=== PATIENT | female | born 2000 | race Caucasian/White ===

== ENCOUNTER 2019-04-01 10:31 | Day surgery (SDC) | payer BC ==
[~2019-04-01 10:31] MED LIST: Acetaminophen TAB* 325 MG PO ONE; Buffered Lidocaine 1% SYRIN* 1 ML/SYRINGE INTRADERM ONE; Lactated Ringers 1000 ML Bag* 1,000 ML IV SCH
[2019-04-01] MEDS ORDERED: Acetaminophen TAB* 325 MG ONE (12:25)
[2019-04-01] MEDS ORDERED: Propofol* 10 MG/ML 20 ML BTL ONE (13:37)
[2019-04-01] MEDS ORDERED: Lidocaine 2% PF * 5 ML VIAL ONE (13:37)
[2019-04-01] MEDS ORDERED: Rocuronium* 10 MG/ML VIAL ONE (13:38)
[2019-04-01] MEDS ORDERED: fentaNYL* 50 MCG/ML 2 ML VIAL (100 MCG VIAL) ONE (13:39)
[2019-04-01] MEDS ORDERED: Midazolam* 1 MG/ML 2 ML VIAL (2 MG) ONE (13:40)
[2019-04-01] MEDS ORDERED: Ondansetron INJ* 2 MG/ML VIAL ONE (14:07)
[2019-04-01] MEDS ORDERED: Dexamethasone IV* 4 MG/ML 1 ML (4 MG) ONE (14:07)
[2019-04-01] MEDS ORDERED: Morphine 10 MG/ML VIAL (1 ml) ONE (14:08)
[2019-04-01] MEDS ORDERED: Glycopyrrolate IV* 0.2 MG/ML 1 ML VIAL ONE (14:18)
[2019-04-01] MEDS ORDERED: Scopolamine 1.5 mg* PATCH ONE (14:31)
[2019-04-01] MEDS ORDERED: Morphine 4 MG/ML VIAL (1 ml) 4 MG/ML VIAL IV PRN (14:33)
[2019-04-01] MEDS ORDERED: diPHENhydraMINE IV* 50 MG/ML 1 ml VIAL (BENADRYL) IV PRN (14:33)
[2019-04-01] MEDS ORDERED: Scopolamine 1.5 mg* PATCH TRANSDERM PRN (14:33)
[2019-04-01] MEDS ORDERED: oxyCODONE TAB* 5 MG TAB PO PRN (14:33)
[2019-04-01] MEDS ORDERED: Ondansetron INJ* 2 MG/ML VIAL IV PRN (14:33)
[2019-04-01] MEDS ORDERED: Naloxone* 0.4 MG/ML 1 ML VIAL IV PRN (14:33)
[2019-04-01 15:34] VITALS: BP 119/70
--- NOTE | 2019-04-01 20:53 | OP ---
DATE OF OPERATION: 04/01/19 - SDS DATE OF : 89 SURGEON: Riki Morales MD IMPLEMENTATION ADVISOR: None. ANESTHESIA: General. PRE-OP DIAGNOSIS: Chronic tonsillitis. POST-OP DIAGNOSIS: Chronic tonsillitis. OPERATIVE PROCEDURE: Tonsillectomy. ESTIMATED BLOOD LOSS: Negligible. SPECIMENS: Right and left tonsils to Pathology. INDICATIONS: This is a 18-year-old woman with chronic tonsillitis who presents for elective tonsillectomy. DESCRIPTION OF PROCEDURE: She was brought to the operating room. General anesthesia was induced and oral endotracheal tube was placed. The patient was draped. A head wrap was applied and a time-out was performed. The McIvor mouth gag was used to facilitate exposure of the oropharynx. It was suspended from the Romano stand. The right tonsil was grasped with a straight Allis forceps , retracted medially and dissected free of its fossa with the coblation device at a setting of 7 and 3. There was minimal bleeding. The left tonsil was removed in an identical fashion, again utilizing the coblation device at 7 and 3 with minimal bleeding. Once the tonsils were removed, the superior and inferior pole regions were prophylactically cauterized with the bipolar settings at 5. The mouth gag was then let down for a minute. It was then opened again. There was no evidence of active bleeding. An orogastric tube was passed and the stomach contents were evacuated. The patient was then returned to the care of the anesthesiologist, extubated and delivered to the PACU in stable condition. [id number] #: [id number] MTDD
[2019-04-04] MEDS ORDERED: Scopolamine PATCH Remove* 1 NOTE MISC PATCH OFF ONE (14:34)
== END 2019-04-01 15:15 | disposition home or self-care (01) ==
LOC: OR 10:31
PROVIDERS: ATTEND Otolaryngology
DX: J35.01 Chronic tonsillitis (principal)
CPT/HCPCS: 81025; 88304; A9270-GY; J1100; J2250; J2270; J2405; J2704; J3010